=== PATIENT | female | born 1985 | race Caucasian/White ===

== ENCOUNTER 2020-03-10 14:09 | Inpatient (IN) | payer OTHER ==
--- NOTE | 2020-03-10 14:41 | BHS.RME ---
Substance Use & Tx History - Substance Use History Heroin Substance amount: 1.5 bundle Frequency of use: Daily Substance route: Injection (ex: intravenous or skin popping) Date of Last Use: 03/10/20 (First use age 12 y. OD x 2, last was years ago. Has Narcan at home) Marijuana/Hashish Substance amount: one joint Frequency of use: Less than 3 times per week Substance route: Smoking Date of Last Use: 03/03/20 (First use age 8 y) Nicotine Substance amount: 5 cigs Frequency of use: Daily Substance route: Smoking Date of Last Use: 03/10/20 (First use age 8 y) Physical/Psych/Mental Status - Behavior General Behavior: Increased activity (restlessness, agitation) Eye Contact: Normal - Cooperativeness Cooperativeness: Cooperative - Thinking Thought Processes: Tight Thought content: Future oriented - Physical Health Problems Is patient presently having any pain?: No Does patient presently have any injuries (include location): No Does patient currently have a fever: No COWS - Scale Resting Pulse: 0= [place] 80 or Below Sweatin= Chills/Flushing Restless Observation: 0= Sits Still Pupil Size: 0= Normal to Room Light Bone or Joint Aches: 1= Mild Discomfort Runny Nose/ Eye Tearin= Runny Nose/Eyes GI Upset > 30mins: 1= Stomach Cramp Tremor Observation: 1= Tremor [place], Not Seen Yawning Observation: 0= None Anxiety or Irritability: 1=Feels Anxious/Irritable Goose Flesh Skin: 0=Smooth Skin COWS Score: 7
--- NOTE | 2020-03-10 17:53 | HP ---
COWS - Scale Resting Pulse: 0= [place] 80 or Below Sweatin= Chills/Flushing Restless Observation: 0= Sits Still Pupil Size: 0= Normal to Room Light Bone or Joint Aches: 1= Mild Discomfort Runny Nose/ Eye Tearin= Runny Nose/Eyes GI Upset > 30mins: 1= Stomach Cramp Tremor Observation: 1= Tremor [place], Not Seen Yawning Observation: 0= None Anxiety or Irritability: 1=Feels Anxious/Irritable Goose Flesh Skin: 0=Smooth Skin COWS Score: 7 CIWA Score - Admission Criteria OASAS Guidelines: Admission for Medically Managed Detox: Requires at least one of the followin. CIWA greater than 12 2. Seizures within the past 24 hours 3. Delirium tremens within the past 24 hours 4. Hallucinations within the past 24 hours 5. Acute intervention needed for co occurring medical disorder 6. Acute intervention needed for co occurring psychiatric disorder 7. Severe withdrawal that cannot be handled at a lower level of care (continued vomiting, continued diarrhea, abnormal vital signs) requiring intravenous medication and/or fluids 8. Admitting History and Physical - Admission Chief Complaint: 'I need help from using heroin' History of Present Illness: CC: 'I need help from using heroin' HPI: Faiza is a 34 year old woman with polysubstance abuse (heroin, cocaine, marijuana, nicotine), asthma, depression, who presents for detox from opiods. This is her first time at [facility]. She was previously on a methadone program at [facility], and was there for 3 years until she was kicked out 1 year ago. Substance Use History Heroin Substance amount: 1.5 bundle Frequency of use: Daily Substance route: Injection (ex: intravenous or skin popping) Date of Last Use: 03/10/20 (First use age 12 y. OD x 2, last was years ago. Has Narcan at home) Cocaine Substance amount: 1 bag Frequency of use: 1 time per month Substance route:sniffing and iv Date of Last Use: 03/07 (First use age 32) Marijuana/Hashish Substance amount: one joint Frequency of use: Less than 3 times per week Substance route: Smoking Date of Last Use: 03/03/20 (First use age 8 y) Nicotine Substance amount: 5 cigs Frequency of use: Daily Substance route: Smoking Date of Last Use: 03/10/20 (First use age 8 y) PMH: Asthma PSH: None Pysch: Depression, anxiety (previously on trazodone, seroquel, klonopin) Social: Homeless Legal: None History Source: Patient Limitations to Obtaining History: No Limitations - Smoking History Smoking history: Current every day smoker Have you smoked in the past 12 months: Yes Aproximately how many cigarettes per day: 5 - Social History Usual Living Arrangement: Yes: Other (Homeless) Admission ROS S - HPI Allergies/Adverse Reactions: Allergies Allergy/AdvReac Type Severity Reaction Status Date / Time pineapple Allergy Severe laryngeal Verified 03/10/20 17:54 edema Exam Limitations: No Limitations - Ebola screening Have you traveled outside of the country in the last 21 days: No Have you had contact with anyone from an Ebola affected area: No Have you been sick,other than usual withdrawal symptoms: No Do you have a fever: No - Review of Systems Constitutional: Diaphoresis, Loss of Appetite, Night Sweats, Unintentional Wgt. Loss EENT: reports: Dental Problems (describes her teeth 'crumbling' and falling out). denies: Eye Pain, Ear Pain, Nose Congestion, Throat Pain Respiratory: reports: Wheezing (reports wheezing in the heat). denies: Cough, Shortness of Breath Cardiac: denies: Chest Pain, Lightheadedness GI: reports: Poor Appetite. denies: Constipated, Diarrhea, Vomiting : reports: No Symptoms Reported Musculoskeletal: reports: Back Pain (chronic back pain) Integumentary: reports: Bruising (describes injecting into a bruised, hardened vein this morning) Neuro: reports: Tremors. denies: Headache Endocrine: reports: No Symptoms Reported Hematology: denies: Blood Clots Psychiatric: reports: Orientated x3, Depressed Patient History - Smoking Cessation Smoking history: Current every day smoker Have you smoked in the past 12 months: Yes Aproximately how many cigarettes per day: 5 Initiated information on smoking cessation: Yes 'Breaking Loose' booklet given: 03/10/20 Admission Physical Exam [facility] - Vital Signs Vital Signs: Vital Signs - 24 hr 03/10/20 17:10 Temperature 98.2 F Pulse Rate 71 Respiratory 12 Rate Blood Pressure 121/60 - Physical General Appearance: Yes: Cachetic, Thin, Tremorous HEENTM: Yes: Hearing grossly Normal, Normocephalic Respiratory: Yes: Lungs Clear, Normal Breath Sounds, No Respiratory Distress, No Accessory Muscle Use. No: Rapid RR, Accessory Muscle Use Neck: Yes: No masses,lesions,Nodules (On the right posterior cervical triangle, there is a 2x2 cm firm nodule with ecchymosis.) Breast: Yes: Breast Exam Deferred Cardiology: Yes: Regular Rhythm, Regular Rate, S1, S2 Abdominal: Yes: Within Normal Limits Back: Yes: Within Normal Limits Musculoskeletal: Yes: full range of Motion, Gait Steady Extremities: Yes: Tremors Neurological: Yes: Fully Oriented, Alert, Motor Strength 5/5, Depressed Affect Integumentary: Yes: Dry, Warm - Diagnostic (1) Opioid use disorder Current Visit: Yes Status: Acute (2) Cocaine abuse Current Visit: Yes Status: Acute (3) Nicotine use disorder Current Visit: Yes Status: Chronic (4) Asthma Current Visit: Yes Status: Chronic (5) Heroin addiction Current Visit: Yes Status: Acute (6) Marijuana use Current Visit: Yes Status: Chronic (7) Depression Current Visit: Yes Status: Chronic Cleared for Admission S - Detox or Rehab [facility] Level of Care: Medically Managed Screened but not Admitted - Documentation of Visit Screened but not Admitted: No Breathalyzer - Breathalyzer Breathalyzer: 0 Urine Drug Screen - Test Device Lot number: [id number] Expiration date: 11/13/21 - Control Is test valid?: Yes - Results Drug screen NEGATIVE: No Urine drug screen results: SHEILA-Cocaine, FEN-Fentanyl, MOP-Opiates, MTD-Methadone Inpatient Rehab Admission - Rehab Decision to Admit Inpatient rehab admission?: No
[2020-03-10] MEDS ORDERED: IBUPROFEN 400 MG TABLET (FP) PO PRN (18:15)
[2020-03-10] MEDS ORDERED: METHOCARBAMOL 500 MG TABLET PO PRN (18:15)
[2020-03-10] MEDS ORDERED: BISMUTH SUBSALICYLATE 524 MG/30 ML UD PO PRN (18:15)
[2020-03-10] MEDS ORDERED: MENTHOL/PHENOL 1 EACH UD MM PRN (18:15)
[2020-03-10] MEDS ORDERED: MAG HYDROX/AL HYDROX/SIMETH 30 ML UNIT-DOSE CUP PO PRN (18:15)
[2020-03-10] MEDS ORDERED: MAGNESIUM HYDROX 2400MG/30ML ORAL SUSPENSION 30 ML CUP PO PRN (18:15)
[2020-03-10] MEDS ORDERED: ONDANSETRON *ODT* 4 MG TABLET SL PRN (18:15)
[2020-03-10] MEDS ORDERED: MAGNESIUM CITRATE 300 ML BOTTLE PO PRN (18:15)
[2020-03-10] MEDS ORDERED: ACETAMINOPHEN 325 MG TABLET (FP) PO PRN ×2 (18:15)
[2020-03-10] MEDS ORDERED: cloNIDine HCL 0.1 MG TABLET PO PRN (18:15)
[2020-03-10] MEDS ORDERED: NICOTINE POLACRILEX 2 MG GUM BUC PRN (18:15)
[2020-03-10] MEDS ORDERED: METHADONE HCL 10 MG TABLET (FOR DETOX USE ONLY) PO ONE (19:00)
[2020-03-10] MEDS: NICOTINE 7 MG/24 HOURS TOPICAL PATCH TD SCH (19:56)
[2020-03-10] MEDS ORDERED: MELATONIN 5 MG TABLETS PO SCH (22:00)
[2020-03-10] MEDS ORDERED: THIAMINE HCL 100 MG TABLET (FP) PO SCH (22:00)
[2020-03-10] MEDS: hydrOXYzine PAMOATE 25 MG CAPSULE (FP) PO SCH (22:37)
[2020-03-11] MEDS: hydrOXYzine PAMOATE 25 MG CAPSULE (FP) PO SCH ×2 (05:31→10:35)
[2020-03-11 09:04] VITALS: BP 100/63; PULSE 60; TEMP 97.6
[2020-03-11] MEDS ORDERED: METHOCARBAMOL 500 MG TABLET PO ONE (09:31)
--- NOTE | 2020-03-11 09:36 | PN ---
BHS COWS - Scale Resting Pulse: 0= [place] 80 or Below Sweatin= Chills/Flushing Restless Observation: 0= Sits Still Pupil Size: 1= Pupils >than Normal Bone or Joint Aches: 2= Severe Diffuse Aches Runny Nose/ Eye Tearin= None GI Upset > 30mins: 1= Stomach Cramp Tremor Observation of Outstretched Hands: 2= Slight Tremor Visible Yawning Observation: 0= None Anxiety or Irritability: 2=Irritable/Anxious Goose Flesh Skin: 0=Smooth Skin COWS Score: 9 BHS Progress Note (SOAP) Subjective: 34 years old female admitted on 03/10/20 for opiate withdrawal sx management treating with methadone detox regiment reports chronic back pain and muscle tightness lidocaine patch daily robaxin 500mg po x 1 ate breakfast in room social with peers in day room Objective: 03/11/20 09:38 Vital Signs - 24 hr 03/10/20 03/10/20 03/10/20 17:10 19:11 19:48 Temperature 98.2 F 98.2 F Pulse Rate 71 71 Respiratory 12 12 Rate Blood Pressure 121/60 121/60 O2 Sat by Pulse 97 Oximetry (%) 03/11/20 03/11/20 06:17 08:40 Temperature 97.3 F L 97.6 F Pulse Rate 56 L 60 Respiratory 16 16 Rate Blood Pressure 110/55 L 100/63 O2 Sat by Pulse 99 99 Oximetry (%) 03/11/20 09:42 lab pending Assessment: 03/11/20 09:42 opiate withdrawal Plan: methadone regiment
[2020-03-11] MEDS ORDERED: METHADONE HCL 10 MG TABLET (FOR DETOX USE ONLY) ONE (09:41)
[2020-03-11] MEDS ORDERED: METHADONE HCL 5 MG TABLET (FOR DETOX USE ONLY) ONE (09:42)
[2020-03-11] MEDS ORDERED: METHADONE (DETOX) 20 MG, METHADONE (DETOX) 5 MG PO ONE (10:00)
[2020-03-11] MEDS ORDERED: PRENATAL VITAMINS W/ FOLIC ACID TABLET (FP) PO SCH (10:00)
[2020-03-11] MEDS ORDERED: LIDOCAINE 5% TOPICAL PATCH TP SCH (10:00)
[2020-03-11] MEDS: NICOTINE 7 MG/24 HOURS TOPICAL PATCH TD SCH (10:41)
[2020-03-11 10:44] LABS: HEMATOCRIT 43.7 % (32.4-45.2); HEMOGLOBIN 14.4 GM/dL (10.7-15.3); MEAN CELL VOLUME 93.9 fl (80-96); MEAN PLT VOLUME 8.9 fl (7.5-11.1); PLATELET COUNT 314 K/MM3 (134-434); RBC 4.65 M/mm3 (3.60-5.2); RDW 14.1 % (11.6-15.6); WHITE BLOOD COUNT 7.8 K/mm3 (4.0-10.0)
[2020-03-11 10:45] LABS: ALBUMIN 3.7 g/dl (3.4-5.0); BILIRUBIN,TOTAL 1.1 mg/dL (0.2-1); BLOOD UREA NITROGEN 7.3 mg/dL (7-18); CALCIUM 9.4 mg/dL (8.5-10.1); CREATININE 0.7 mg/dL (0.55-1.3); POTASSIUM 4.4 mmol/L (3.5-5.1); TOT PROT 7.9 g/dl (6.4-8.2)
--- NOTE | 2020-03-11 10:47 | EKG ---
Test Reason : Blood Pressure : / mmHG Vent. Rate : 056 BPM Atrial Rate : 056 BPM P-R Int : 176 ms QRS Dur : 082 ms QT Int : 438 ms P-R-T Axes : 062 075 036 degrees QTc Int : 422 ms SINUS BRADYCARDIA OTHERWISE NORMAL ECG NO PREVIOUS ECGS AVAILABLE Confirmed by Denzel Estevez ([id number]) on 03/11/2020 10:46:28 AM Referred By: Confirmed By:Denzel Estevez
--- NOTE | 2020-03-11 14:52 | DS ---
[facility] Detox Discharge Summary Admission Date: 03/10/20 Discharge Date: 03/11/20 - History Present History: Opioid Dependence Additional Comments: 34 years old female admitted on 03/10/20 for opiate withdrawal sx management treated with methadone ms mendenhall insists to leave the detox today that she is unable to contact with her family ms mendenhall seems sad and worry and tearful case discussed with psychiatrist for further evaluation ms mendenhall denies suicidal denies homocidal ideation no self destructive behavior noted ms mendenhall is alert oriented x 3 speech clearly coherently ambulating with steady gaits General Appearance: Yes: Cachetic, Thin, Tremorous HEENTM: Yes: Hearing grossly Normal, Normocephalic Respiratory: Yes: Lungs Clear, Normal Breath Sounds, No Respiratory Distress, No Accessory Muscle Use. No: Rapid RR, Accessory Muscle Use Neck: Yes: No masses,lesions,Nodules (On the right posterior cervical triangle, there is a 2x2 cm firm nodule with ecchymosis.) Breast: Yes: Breast Exam Deferred Cardiology: Yes: Regular Rhythm, Regular Rate, S1, S2 Abdominal: Yes: Within Normal Limits Back: Yes: Within Normal Limits Musculoskeletal: Yes: full range of Motion, Gait Steady Extremities: Yes: Tremors Neurological: Yes: Fully Oriented, Alert, Motor Strength 5/5, Depressed Affect Integumentary: Yes: Dry, Warm Pertinent Past History: time for discharge 47 minutes treatment team met with ms mendenhall to discuss the benefits of methadone completion ms mcdermott agrees to consider medication assisted program - Physical Exam Results Vital Signs: Vital Signs Temperature 97.6 F 03/11/20 08:40 Pulse Rate 60 03/11/20 08:40 Respiratory Rate 16 03/11/20 08:40 Blood Pressure 100/63 03/11/20 08:40 O2 Sat by Pulse Oximetry (%) 99 03/11/20 08:40 Pertinent Admission Physical Exam Findings: opiate withdrawal Laboratory Tests 03/11/20 03/11/20 03/11/20 08:00 08:00 08:00 WBC 7.8 RBC 4.65 Hgb 14.4 Hct 43.7 MCV 93.9 MCH 31.0 MCHC 33.0 RDW 14.1 Plt Count 314 MPV 8.9 Sodium 139 Potassium 4.4 Chloride 103 Carbon Dioxide 32 Anion Gap 4 L BUN 7.3 Creatinine 0.7 Est GFR (CKD-EPI)AfAm 131.02 Est GFR (CKD-EPI)NonAf 113.04 Random Glucose 109 H Calcium 9.4 Total Bilirubin 1.1 H AST 69 H ALT 331 H Alkaline Phosphatase 235 H Total Protein 7.9 Albumin 3.7 Syphilis Serology Non-reactive strong recommend ms mendenhall to follow up with her primary care provider in the community or connect with [facility] for repeating camp 12 - Treatment Hospital Course: Detox Protocol Followed, Rehab Referral Accepted Patient has Accepted a Rehab Referral to: [facility] - Diagnosis (1) Opioid use disorder Status: Acute (2) Asthma Status: Chronic Qualifiers: Asthma severity: mild Asthma persistence: intermittent Asthma complication type: with status asthmaticus Qualified Code(s): J45.22 - Mild intermittent asthma with status asthmaticus (3) Nicotine use disorder Status: Acute - AMA Did Patient Leave Against Medical Advice: Yes
[2020-03-11] MEDS ORDERED: LIDOCAINE PATCH REMOVAL MC SCH (22:00)
[2020-03-12] MEDS ORDERED: METHADONE HCL 10 MG TABLET (FOR DETOX USE ONLY) PO ONE (10:00)
[2020-03-13] MEDS ORDERED: METHADONE (DETOX) 10 MG, METHADONE (DETOX) 5 MG PO ONE (10:00)
[2020-03-14] MEDS ORDERED: METHADONE HCL 10 MG TABLET (FOR DETOX USE ONLY) PO ONE (10:00)
[2020-03-15] MEDS ORDERED: METHADONE HCL 5 MG TABLET (FOR DETOX USE ONLY) PO ONE (06:00)
--- NOTE | 2020-04-07 09:06 | PN ---
Teaching Attending Note Name of Resident: Bina Da Silva ATTENDING PHYSICIAN STATEMENT I saw and evaluated the patient. I reviewed the resident's note and discussed the case with the resident. I agree with the resident's findings and plan as documented. SUBJECTIVE: OBJECTIVE: ASSESSMENT AND PLAN: Opioid use disorder Plan 1. Methdone detox protocol
== END 2020-03-11 11:32 | disposition left against medical advice (07) | DRG 770 ==
LOC: YASAS 14:09 → Y3N 18:55
PROVIDERS: ADMIT Allergy & Immunology; ATTEND Allergy & Immunology
PROC: HZ2ZZZZ Detoxification Services for Substance Abuse Treatment (ICD-10-PCS; principal; 2020-03-10)
DX: F11.23 Opioid dependence with withdrawal (principal); F14.10 Cocaine abuse, uncomplicated; F12.90 Cannabis use, unspecified, uncomplicated; F17.210 Nicotine dependence, cigarettes, uncomplicated; F32.9 Major depressive disorder, single episode, unspecified; J45.20 Mild intermittent asthma, uncomplicated
CPT/HCPCS: 36415; 80053; 81025; 85027; 86780; 93005; 93010; U0003